=== PATIENT | female | born 2000 | race African-American/Black ===

== ENCOUNTER 2022-04-15 14:59 | Observation (INO) ==
[2022-04-15] MEDS ORDERED: LACTATED RINGERS 2,000 ML IV ONE (15:00)
[2022-04-15] MEDS: ONDANSETRON 4 MG/2 ML VIAL IV PRN ×2 (16:07→23:11)
[2022-04-15 17:05] LABS: Basophils % 0.1 % (0.0-0.8); Eosinophils % 0.1 % (0.00-10.9); Hematocrit 32.9 VOL% (35.7-47.0); Hemoglobin 11.5 GM/DL (12.0-16.0); Immature Granulocytes % 0.3 %; Immature Granulocytes Absolute 0.02 #; Lymphocytes # 0.6 10*3/uL (1.4-4.0); Lymphocytes % 8.4 % (21.3-54.2); Mean Corpuscular Volume 83.1 FL (87-102); Monocytes # 0.9 10*3/uL (0.11-0.8); Neutrophils % 79.1 % (38.7-73.9); Platelet Count 210 T/CUMM (130-400); Red Blood Count 3.96 MC/CUMM (3.8-5.5); Red Cell Distribution Width 12.2 % (9.3-17.3); White Blood Count 7.4 T/CUMM (4-12)
[2022-04-15 17:22] LABS: Albumin 2.7 G/DL (3.4-5.0); Bilirubin,Total 0.5 MG/DL (0.20-1.00); Calcium 8.4 MG/DL (8.5-10.1); Osmolality,Calculated 264.1 MOS/KG (273-304); Potassium 2.7 MMOL/L (3.5-5.1); Total Protein 6.1 G/DL (6.4-8.2)
[2022-04-15] MEDS: LACTATED RINGERS 1,000 ML IV SCH (18:54)
[2022-04-15] MEDS: POTASSIUM CHLORIDE RIDER 10 MEQ/100 ML PREMIX IV PRN ×2 (20:40→22:10)
[2022-04-15] MEDS ORDERED: POLYETHYLENE GLYCOL POWDER 17 GM PACK PO PRN (22:37)
[2022-04-15] MEDS ORDERED: BISACODYL 10 MG SUPP RECTAL PRN (23:56)
[2022-04-16] MEDS: POTASSIUM CHLORIDE RIDER 10 MEQ/100 ML PREMIX IV PRN ×6 (00:53→15:04)
[2022-04-16 03:25] LABS: Amorphous Crystals,Urine Occasional /HPF (Few); Bacteria,Urine Occasional /HPF (Few); Bilirubin,Urine Negative (Negative); Blood, Urine Negative (Negative); Glucose,Urine (UA) Negative (Negative); Ketones,Urine 80 mg/dL (Negative); Mucus,Urine Occasional /LPF (Occasional); Nitrite,Urine Negative (Negative); Protein,Urine Negative (Negative); RBC,Urine 2 /HPF (0-4); Squamous Epithelial Cell,Urine Occasional /HPF (0-10); Urine Appearance CLEAR (Clear); Urine Color Straw (Yellow); Urine Specific Gravity 1.005 (1.001-1.035); Urine Urobilinogen < 2.0 eU/dL (<2.0)
[2022-04-16] MEDS: LACTATED RINGERS 1,000 ML IV SCH ×2 (05:28)
[2022-04-16] MEDS: ONDANSETRON 4 MG/2 ML VIAL IV PRN (08:18)
[2022-04-16] MEDS ORDERED: SCOPOLAMINE 1.5 MG PATCH TRANSDERM SCH (09:00)
[2022-04-16 19:30] VITALS: BP 125/75
== END 2022-04-16 19:30 | disposition home or self-care (01) ==
LOC: N.OB 14:59 → N.OBOUT 15:05 → N.OB 15:07
PROVIDERS: ADMIT Specialist; ATTEND Specialist